=== PATIENT | female | born 1980 | race Caucasian/White ===

== ENCOUNTER 2019-12-16 11:10 | Outpatient (CLI) | payer BC ==
--- NOTE | 2019-12-16 11:32 | RAD ---
XR Chest Pa Lat STANDARD HISTORY: Chronic cough and asthma COMPARISON: None FINDINGS: The heart size is normal. The lungs are well expanded without focal areas of consolidation, pneumothorax or pleural effusions. IMPRESSION: No radiographic evidence of acute cardiopulmonary process.
== END 2019-12-16 11:11 | disposition home or self-care (01) ==
LOC: BICRAD 11:10
PROVIDERS: ATTEND Student in an Organized Health Care Education/Training Program
DX: R05 Cough (principal)
CPT/HCPCS: 71046